=== PATIENT | female | born 1990 | race Asian ===

== ENCOUNTER 2016-11-29 12:50 | Inpatient (IN) | payer OTHER ==
[~2016-11-29] VITALS: Ht 157.5 cm; Wt 79.8 kg
[~2016-11-29 12:50] MED LIST: PREN1TAB47 PO
[2016-11-29] MEDS ORDERED: Lactated Ringer's 1,000 ML IV PRN (17:22)
[2016-11-29] MEDS ORDERED: Oxytocin 10 Unit/mL Inj IM PRN (17:25)
[2016-11-29] MEDS ORDERED: Hemorrhage Kit, Post Partum XX ONE (17:25)
[2016-11-29] MEDS ORDERED: Oxytocin 30 Units/500 mL LR 30 UNITS in IV Premix 1 EACH IV PRN ×2 (17:25→17:35)
[2016-11-29] MEDS ORDERED: Methylergonovine 0.2 mg/mL Inj IM PRN (17:25)
[2016-11-29] MEDS ORDERED: Ondansetron 2 mg/mL 2 mL Inj IVPUSH PRN (17:25)
[2016-11-29] MEDS ORDERED: Carboprost 250 mCg/mL Inj IM PRN (17:25)
[2016-11-29] MEDS ORDERED: fentaNYL-PF 50 mCg/mL 2 mL Inj IVPUSH PRN (17:25)
[2016-11-29 21:00] LABS: Mean Corpuscular Hemoglobin 29.6 pg (27.0-35.0); Mean Corpuscular Volume 84.6 fL (81-100)
--- NOTE | 2016-11-30 00:46 | HP ---
[address] [address] HISTORY AND PHYSICAL PATIENT: SWAPNIL MENESES : 1990 MR#: [id number] ADMIT: 11/29/2016 JOB ID: [id number] HISTORY OF PRESENT ILLNESS: The patient is a 26-year-old, 3, para 2, who has been seen in the clinic for her visits. Patient is 39 weeks , and her estimated due date is December 06, 2016. She comes for induction of labor due to social reasons, the patient lives more than 60 minutes away from the hospital and is concerned that she started feeling occasional contractions and she is afraid to deliver the baby on the way to the hospital. Her care was relatively uncomplicated. She had an ultrasound that was normal at 20 weeks. The only testing that was shown was intracardiac echogenic focus. The patient had consultation at [facility] and she declined amniocentesis and cell-free DNA testing. labs were reviewed. She is blood group and type O-positive, rubella immune, varicella non-immune, group B strep negative. The patient has complained about occasional contractions, otherwise she is not symptomatic. FAMILY HISTORY: Noncontributory. SOCIAL HISTORY: She denies smoking, alcohol, or illicit drug use. OBSTETRICAL HISTORY: The patient has a history of two spontaneous vaginal deliveries in 2008 and 2010, at 39 weeks, the first was 6 pounds, the second one was 7 pounds. PHYSICAL EXAMINATION: Vital signs: Temperature 36.6, pulse 60, blood pressure 102/64. Oxygen saturation 98% on room air. HEENT: PERRLA. Chest: Clear bilaterally. No adventitious sounds. Cardiovascular: Regular rate and rhythm. No murmur. The abdomen is gravid, appropriate for gestational age, nondistended and nontender. Vaginal exam: The cervix is 3-4 cm dilated, 70% effaced, -3 station, slight change from the findings in the clinic where she was 3 cm dilated, 60% effaced, -3 station. Extremities: Trace pitting edema. ASSESSMENT AND PLAN: The patient is a 26-year-old, 3, para 2, at 39 weeks, estimated due date December 06, 2016, comes for induction of labor at 39 weeks because of social reasons, patient lives one hour away from the hospital. heart rate tracing is reactive, category 1. No discolorations. Vital signs stable. The cervix is favorable. [employer] cervical ripening balloon was placed. Discussed induction of labor and epidural with the patient. She declined epidural. She would like to deliver the baby with less medications as possible. We still discussed with possibility of augmentation of labor with Pitocin. Pain management with fentanyl p.r.n. as needed. Will anticipate spontaneous vaginal delivery. JULIANO
--- NOTE | 2016-11-30 07:12 | PCM.PNOBIP ---
Subjective Date of Service Nov 30, 2016 Delivery plan: Spontaneous Vaginal Delivery Subjective 26 year old female - 2 previous without complication. Presented to [facility] yesterday for scheduled induction of labor due to geographic concerns (Pt lives >60 min from hospital). Blood Type is O pos, GBS neg. Uncomplicated to date. Currently Pt states no pain and would like to continue laboring and deliver with as little medication as possible. Currently she is having occasional contractions, otherwise is resting comfortable in room. last check 05:17 5-6cm dialated, 70%effaced, -3 station, soft posterior cervix Pain Management: No or Minimal Pain Gastrointestinal: Passing Flatus Group B Strep Results: Negative Rubella: Immune Blood Type: O RH Type: Positive Labs Laboratory Tests 11/29/16 16:30: White Blood Count 10.8, Red Blood Count 4.87, Hemoglobin 14.4, Hematocrit 41.2, Mean Corpuscular Volume 84.6, Mean Corpuscular Hemoglobin 29.6, Mean Corpuscular Hemoglobin Concent 35.0, Red Cell Distribution Width 13.6, Platelet Count 262, Hold Purple Top Tube Received Exam Vital Signs Vital Signs Contraction frequency in minutes: per Pt 5 min BP - 90/55, HR - 86, RR 16, temp 36.7 Vital Signs: VS reviewed, stable Heart Tracings Heart Tones Baseline 125 bpm Heart Rate Variability: Moderate Heart Rate Accelleration: Present (15x15) Heart Rate Deceleration: Absent Heart Rate Category: I Tocometry/IUPC Contraction frequency in minutes: MVUs: Exam Abdomen: Fundus firm, Abdomen non-tender Extremities: No edema Lungs: Clear to Auscultation, Normal Air Movement Heart: Exam Unremarkable, Regular Rate/Rhythm General: Alert, Oriented X3, Cooperative, No Acute Distress OB Intrapartum Assessment/Plan Assessment 26 female , labor induction scheduled. Problems: (1) Active labor at term Plan: Continue expectant management, continue supportive care. Anticipate vaginal delivery today. Status: Acute ICD Code: [id number] (2) Term Plan: Continue supportive care. Status: Acute ICD Code: Z34.80 Intrapartum plan: Continue expected management Pain Evaluation: Adequate Pain Control Attending Statement The patient was seen and examined together with Dr. Rdz on 11/30/2016 and I agree with the history, exam and plan as outlined in the note above. Pitocin for IOL started this am. / MD NICOLAS Duarte GILES A DO Nov 30, 2016 07:12 Ishaan Owens MD Nov 30, 2016 12:22
[2016-11-30] MEDS: Sodium Chloride LOK Flush 10 mL Syringe IVFLUSH PRN ×2 (08:37→14:25)
[2016-11-30] MEDS: Lactated Ringer's 1,000 ML IV SCH ×2 (12:23→20:23)
[2016-11-30] MEDS ORDERED: HYDROcodone-APAP 5-325 mg Tablet PO PRN (12:25)
[2016-11-30] MEDS ORDERED: Hemorrhage Kit, Post Partum XX ONE (12:25)
[2016-11-30] MEDS ORDERED: Methylergonovine 0.2 mg/mL Inj IM PRN (12:25)
[2016-11-30] MEDS ORDERED: Oxytocin 30 Units/500 mL LR 30 UNITS in IV Premix 1 EACH IV PRN (12:25)
[2016-11-30] MEDS ORDERED: Carboprost 250 mCg/mL Inj IM PRN (12:25)
[2016-11-30] MEDS ORDERED: LANOlin HPA 7 Gm Ointment TOPICAL PRN (12:25)
[2016-11-30] MEDS ORDERED: Witch Hazel-Glycerin Pads TOPICAL PRN (12:25)
[2016-11-30] MEDS ORDERED: Benzocaine (Dermoplast) 20% 60 Gm Spray TOPICAL PRN (12:25)
[2016-11-30] MEDS ORDERED: Oxytocin 10 Unit/mL Inj IM PRN (12:25)
--- NOTE | 2016-11-30 12:39 | PCM.OBVAG ---
Vaginal Delivery Date of Service Nov 30, 2016 Pre Operative Diagnosis Pre Operative Diagnosis 1. 39 weeks gestation 2. History of precipitous delivery and lives remote from the hospital, desires IOL Post Operative Diagnosis Post Operative Diagnosis Same Procedure Obstetical Procedure: Normal Spontaneous Vaginal Delivery Aws Solution Architect/Brick Loader Provider and Brick Loader: Ishaan Owens MD Indication for Procedure Indication for Procedure Dileep is a 26 year old with h/o 2 previous NSVDs without complications and last was very precipitous. Presented to [facility] yesterday after cervical dilation in the office was 3cm for scheduled elective induction of labor due to geographic concerns (Pt lives >60 min from hospital). Blood Type is O pos, GBS neg. Uncomplicated to date. On 11/19/2016 Dr. Vallejo admitted her and inserted a cervical ripening balloon. It fell out later that evening. Due to staffing concerns, pitocin was not started until the morning of 11/30 and she was 5-6 cm at that time. She made rapid progress through labor and was found to be complete and +3 station, still intact. Findings Obstetrical Findings: Virgil (Male), Cord (3 Vessel), Weight ( 3575 grams), 1 minute (8), 5 minutes (9), Placenta (Intact/Normal), Perineal Laceration (None.) Analgesia/Medications Procedural Analgesia: None Procedure Details Procedure Details When I entered the room, the patient had an uncontrollable urge to push and the head delivered over an intact perineum with membranes still intact. I was able to grab a blue towel and control the speed of the head delivery with this. I then put on sterile gloves and with additional expulsive efforts, the baby delivered, membranes had ruptured during this and were cleared from the baby's face, and he was placed on maternal abdomen. Active warming and stimulation provided. After one minute, the cord was cut and clamped. Cord blood collected. A sterile drape was placed under maternal buttocks. Pitocin started. The placenta delivered spontaneously intact. Uterus was firm with message. External examination did not reveal any lacerations and there was no active bleeding. Dileep could not tolerate further examination, so the cervix and vagina were not completely explored. Sponge, needle and instrument counts were correct x 2 at the end of the procedure. The patient tolerated the procedure well and she and her baby are stable in the room. Specimen No specimen sent to pathology. Placenta for disposal. IV Intake/Output Catheters: None Blood Loss & Administration Estimated Blood Loss: 200 (mL) Blood Admin during procedure: No Post Procedure Plan Post delivery Condition: Mom stable, Baby stable to nursery VTE Prophylaxis: Other (early and frequent ambulation) Ishaan Owens MD Nov 30, 2016 12:39
[2016-12-01] MEDS: Lactated Ringer's 1,000 ML IV SCH (04:23)
--- NOTE | 2016-12-01 10:18 | PCM.PNOBPP ---
Subjective Date of Service Dec 01, 2016 Post : Spontaneous Vaginal Delivery Subjective 26 year old female G3P(3 now) - 2 previous without complication. Presented to [facility] on 11/29/2016 for scheduled induction of labor due to geographic concerns (Pt lives >60 min from hospital). Blood Type is O pos, GBS neg. Pt had uncomplicated yesterday at approximally 11:55. Baby and mother doing well. Pt is able to ambulate to bathroom, pass urine without difficulty. She eating without difficulty, baby is nursing. Pt would like to discuss Mirena control at follow up appointment. Lochia: Normal Pain Management: PO pain meds, No or Minimal Pain Gastrointestinal: Good Appetite, No N/V, Passing Flatus Postop Activity: Ambulating Independently Group B Strep Results: Negative Rubella: Immune Blood Type: O RH Type: Positive Labs Laboratory Tests 11/29/16 16:30: White Blood Count 10.8, Red Blood Count 4.87, Hemoglobin 14.4, Hematocrit 41.2, Mean Corpuscular Volume 84.6, Mean Corpuscular Hemoglobin 29.6, Mean Corpuscular Hemoglobin Concent 35.0, Red Cell Distribution Width 13.6, Platelet Count 262, Hold Purple Top Tube Received Exam Vital Signs Vital Signs BP 99/69, HR 75, RR 18, temp 36.4 Vital Signs: VS reviewed, stable Exam Abdomen: Uterus is (1 fingerbreadth below umbilicus) Lungs: Clear to Auscultation, Normal Air Movement Heart: Exam Unremarkable, Regular Rate/Rhythm General: Alert, Oriented X3, Cooperative OB Post Assessment/Plan Assessment 26 year old female G3P(3 now) - 2 previous without complication. Pt feels ready to go home and feel;s comfortable to be discharged. Problems: (1) Vaginal delivery Plan: Continue supportive care. Pt will be discharged home today. Status: Resolved ICD Code: O80 Pain Evaluation: Adequate Pain Control BRIAN VALENZUELA DO Dec 01, 2016 10:18
--- NOTE | 2016-12-01 10:22 | PCM.DC.OB ---
Obstetrical Discharge Summary Date of Service Dec 01, 2016 Date of hospital admission Nov 29, 2016 at 13:51 Date of Discharge: Dec 01, 2016 Providers Admitting Physician: Sebastian Vallejo MD Primary Care Physician: Farhan Hernandez MD Attending Physician: Sebastian Vallejo MD Problems: (1) Vaginal delivery Plan: Discharge home in stable condition. Status: Resolved ICD Code: O80 Brief History and Physical: History of present illness. per Dr. Vallejo on 11/29/2016 "The patient is a 26-year-old, 3, para 2, who has been seen in the clinic for her visits. Patient is 39 weeks , and her estimated due date is December 06, 2016. She comes for induction of labor due to social reasons, the patient lives more than 60 minutes away from the hospital and is concerned that she started feeling occasional contractions and she is afraid to deliver the baby on the way to the hospital. Her care was relatively uncomplicated. She had an ultrasound that was normal at 20 weeks. The only testing that was shown was intracardiac echogenic focus. The patient had consultation at [facility] and she declined amniocentesis and cell-free DNA testing. labs were reviewed. She is blood group and type O-positive, rubella immune, varicella non-immune, group B strep negative. The patient has complained about occasional contractions, otherwise she is not symptomatic." Vital Signs BP 99/69, HR 75, RR 18, temp 36.4 Abdomen: Uterus is (1 fingerbreadth below umbilicus) Lungs: Clear to Auscultation, Normal Air Movement Heart: Exam Unremarkable, Regular Rate/Rhythm General: Alert, Oriented X3, Cooperative Hospital Course: 26 year old G3P(3 now) with h/o 2 previous NSVDs without complications and last was very precipitous. Presented to [facility] 11/29/2016 for scheduled elective induction of labor due to geographic concerns (Pt lives >60 min from hospital). Blood Type is O pos, GBS neg. Uncomplicated to date. On 11/19/2016 Dr. Vallejo admitted her and inserted a cervical ripening balloon. It fell out later that evening. Due to staffing concerns, pitocin was not started until the morning of 11/30 and she was 5-6 cm at that time. She made rapid progress through labor and was found to be complete and +3 station, still intact. male weighing 3575 grams, mother doing well. Pt is currently able to ambulate to bathroom, pass urine without difficulty. She eating without difficulty, baby is nursing. Pt would like to discuss Mirena control at follow up appointment. Docusate Sodium (Colace) 100 Mg Capsule 100 MG PO BID Prescribed by: BRIAN VALENZUELA DO Ibuprofen (Ibuprofen) 800 Mg Tablet 800 MG PO Q6H PRN PRN For Pain Prescribed by: BRIAN VALENZUELA DO Vit/Fe Fumarate/Fa-Expunged Drug, Do (-Expunged Drug, Do Not Renew!) 1 Tab Tablet 1 TAB PO DAILY (Reported) Discharge Medications: Ibuprofen, Colace. Disposition Discharge to home in stable condition Follow-up plan Follow up in the women[facility] clinic in 6 weeks Discharge Diet: No restrictions Discharge Activity-General: Pelvic Rest for 6 weeks, Pelvic Rest, Try not to overdue, Be up and about, Balance rest and activity, Activity as pain allows, Activity as energy allows Patient instructions Be sure to follow up in 6 [facility] at [facility]. You have been given a prescription for ibuprofen to take as needed for pain. You been given a prescription for docusate to keep you regular, please take this as needed Pelvic rest for 6 weeks (nothing per vagina including intercourse, tampons) If you have a fever greater than 100.4, please call [facility]. There is always someone gas distribution plant operator to talk to. If you have an increase in bleeding, call [facility]. If you have a lot of bleeding suddenly, especially if you have symptoms of dizziness & weakness with it, get emergency help. If you start experiencing extreme depression, especially if you feel that you are a danger to yourself or your family, seek emergency help. You have been through a lot -- BE SURE TO TAKE CARE OF YOURSELF. BRIAN VALENZUELA DO Dec 01, 2016 10:19
--- NOTE | 2016-12-01 10:39 | PCM.DIOB ---
Obstetrical Disch Instruction Date of Service: Dec 01, 2016 Dates of Hospitalization Date of Hospital Admission Nov 29, 2016 at 13:51 Providers Admitting Physician: Sebastian Vallejo MD Primary Care Physician: Farhan Hernandez MD Attending Physician: Sebastian Vallejo MD Discharge Diagnosis Problems: (1) Vaginal delivery Plan: Continue supportive care. Pt will be discharged home today. Status: Resolved ICD Code: O80 Diet Discharge Diet: No restrictions Activity Discharge Activity-General: Pelvic Rest for 6 weeks, Try not to overdue, Be up and about, Balance rest and activity, Activity as energy allows, No lifting >15 pounds for 2 weeks Dressing and Incisional Care Hygiene: May shower, NO bathtub, hot tub or whirlpool, Perineal care Additional Instructions Discharge Instructions Be sure to follow up in 6 weeks at [facility]. You have been given a prescription for ibuprofen to take as needed for pain. You been given a prescription for docusate to keep you regular, please take this as needed Pelvic rest for 6 weeks (nothing per vagina including intercourse, tampons) If you have a fever greater than 100.4, please call [facility]. There is always someone finisher accordion to talk to. If you have an increase in bleeding, call [facility]. If you have a lot of bleeding suddenly, especially if you have symptoms of dizziness & weakness with it, get emergency help. If you start experiencing extreme depression, especially if you feel that you are a danger to yourself or your family, seek emergency help. You have been through a lot -- BE SURE TO TAKE CARE OF YOURSELF. Follow Up Plan Follow Up Plan [facility] 6 weeks Follow-up appointment: Weeks (6) BRIAN VALENZUELA DO Dec 01, 2016 10:39 BRIAN VALENZUELA DO Dec 01, 2016 10:39
[2016-12-01] MEDS ORDERED: IBUP800T28 PO (10:41)
[2016-12-01] MEDS ORDERED: DOCU-41 PO (10:41)
[2016-12-01 13:09] VITALS: BP 115/80; PULSE 79; RESP 18
--- NOTE | 2016-12-01 14:50 | NUR ---
am shift note pt ambulating, showered, vss, lochia light to moderate. bonding well with baby. well per adria THACKER. progressed to discharge and is awaiting carseat.
== END 2016-12-01 16:15 | disposition home or self-care (01) | DRG 560 ==
LOC: FBC 13:51
PROVIDERS: ADMIT Legal Medicine; ATTEND Legal Medicine
PROC: 10E0XZZ Delivery of Products of Conception, External Approach (ICD-10-PCS; principal; 2016-11-30)
PROC: 0U7C7ZZ Dilation of Cervix, Via Natural or Artificial Opening (ICD-10-PCS; 2016-11-30)
DX: O80 Encounter for full-term uncomplicated delivery (principal); Z3A.39 39 weeks gestation of pregnancy; Z37.0 Single live birth